=== PATIENT | male | born 1980 | race Caucasian/White ===

== ENCOUNTER → 2020-11-04 14:31 | Outpatient (BNVA) | payer OTHER, SELFPAY | PROVIDERS: PCP Internal Medicine; Visit Provider Student in an Organized Health Care Education/Training Program | DX: Z76.89 Persons encountering health services in other specified circumstances (principal) ==

== ENCOUNTER 2020-12-24 14:23 | Outpatient (REF) | payer OTHER, SELFPAY ==
--- NOTE | 2020-12-24 14:37 | US_ITS ---
EXAMINATION: US VENOUS ULTRASOUND WITH DOPPLER LOWER EXTREMITY, RIGHT CLINICAL INFORMATION: Pain COMPARISON: None TECHNIQUE: Ultrasound of the deep veins is performed from the hip to the calf with compression sonography and color and pulse Doppler assessment. Spectral analysis with color-flow imaging is performed. FINDINGS: There is normal venous compression and respiratory variation and augmented flow. The visualized common femoral vein, superficial femoral vein, profunda femoral vein, popliteal vein, and the trifurcation region shows no evidence of deep venous thrombosis. There is a large slightly complex fluid collection seen in the medial knee extending superiorly into the medial distal thigh and inferiorly into the calf. It is uncertain whether this could represent a large ruptured Mckeon's cyst or other fluid collection such as a hematoma, abscess or fluid collection related to muscle injury. US/US venous duplex LE RT IMPRESSION: No DVT demonstrated in the right lower extremity. Large slightly complex fluid collection in the medial knee extending superiorly into the distal thigh and inferiorly into the medial calf.
== END 2020-12-24 14:24 | disposition home or self-care (01) ==
LOC: HO.HMGCX 14:23
PROVIDERS: PCP Internal Medicine; Visit Provider Internal Medicine
DX: M79.604 Pain in right leg (principal)
CPT/HCPCS: 93971

== ENCOUNTER 2022-06-01 11:48 | Outpatient (REF) | payer OTHER, SELFPAY ==
[2022-06-01 13:11] LABS: Influenza A PCR NEGATIVE (Negative); Influenza B PCR NEGATIVE (Negative); Resp Syncy Virus RNA Qual PCR NEGATIVE (Negative); SARS COV2 PCR INHOUSE POSITIVE (Negative)
== END 2022-06-01 11:49 | disposition home or self-care (01) ==
LOC: HO.LNP 11:48
PROVIDERS: Visit Provider Internal Medicine
DX: Z20.822 Contact with and (suspected) exposure to COVID-19 (principal); R09.89 Other specified symptoms and signs involving the circulatory and respiratory systems
CPT/HCPCS: 0241U

== ENCOUNTER 2022-08-28 07:28 | Outpatient (REF) | payer OTHER, SELFPAY ==
[2022-08-28 11:49] LABS: Cholesterol 180 mg/dL; HDL Cholesterol 42 mg/dL; LDL Cholesterol Calculated 117 mg/dl; Triglycerides 105 mg/dL
== END 2022-08-28 07:29 | disposition home or self-care (01) ==
LOC: HO.HMGCLDS 07:28
PROVIDERS: PCP Internal Medicine; Visit Provider Internal Medicine
DX: E66.9 Obesity, unspecified (principal); Z13.220 Encounter for screening for lipoid disorders
CPT/HCPCS: 36415; 80061

== ENCOUNTER 2023-09-25 14:49 | Outpatient (AMB) | payer OTHER, SELFPAY ==
[2023-09-25 15:26] VITALS: BP 136/92; PULSE 83; TEMP 36.9; O2SAT 96; BMI 29.3
--- NOTE | 2023-09-25 15:26 | MHC.OFFWIV ---
Intake Vital Signs 09/25/23 15:26 Height 5 ft 11 in Weight 210 lb BMI 29.3 BP 136/92 H Blood Pressure Location Rt brachial Position Sitting Pulse 83 Pulse Source Pulse Oximeter Temp 98.5 F Temp Source Oral Pulse Oximetry (%) 96 Oxygen Delivery Method Room Air Intake Visit Reasons: EST/cough X2 weeks(lobby masked) Intake Note: pt is here for a cough for 2 weeks and yesterday he started with a stuffy nose and says it sounds braky and says sometimes he is wheezing in the AM he coughs up mucus Patient Tobacco Use Status: Never used Tobacco Allergies nut - unspecified [NUT - UNSPECIFIED] Allergy (Unknown, Verified 09/25/23 15:30) ANAPHYLAXIS nuts Allergy (Unknown, Verified 09/25/23 15:30) hives/anaphylaxis, anaphylaxis Do you need a note to return to daycare/school/sports/work: No HPI EST/cough X2 weeks(lobby masked) HPI Details Patient is a 43-year-old male in for a sick visit. Patient reports persistent dry cough for 3 weeks with little relief from [id number] Mucinex DayQuil and NyQuil. Patient denies running nose, congestion, ear pain, or fever. Patient reports coughing fits during the day that can last over a minute, which interrupts his work. [facility] Medical History (Updated 09/25/23 @ 16:09 by CHANDA Marinelli) Cough Seronegative rheumatoid arthritis Surgical History Hx of appendectomy Family History Father HTN (hypertension) Arthritis Social History Housing: House Alcohol intake: current Patient Tobacco Use Status: Never used Tobacco e-Cigarette/Vaping Use: Never Used service: No Current occupational status: employed Review of Systems Const Denies chills, Denies fever(s) and Reports headache(s) (Reports headache after coughing fits) ENT Reports headache(s) (Reports headache after coughing fits), Denies nasal discharge and Denies nasal obstruction Resp Reports cough Neuro Reports headache(s) (Reports headache after coughing fits) Physical Exam Vital Signs: Last Vital Signs Temp 98.5 F 09/25/23 15:26 Pulse 83 09/25/23 15:26 BP 136/92 H 09/25/23 15:26 Pulse Ox 96 09/25/23 15:26 Oxygen Delivery Method Room Air 09/25/23 15:26 BMI result Body Mass Index 29.3 Const General: no acute distress Orientation/consciousness: patient oriented x3 Limitations: no limitations HEENT Head: Yes normocephalic Ears: TM's normal bilaterally General nose exam: Normal nares present Mouth: Normal oral and palatal mucosa present Throat: Yes tonsils normal Resp Effort & Inspection: normal respiratory effort and Actively coughing Auscultation: wheezes expiratory wheezes and right upper Neuro General: patient oriented x3 Assessment & Plan Assessment & Plan (1) Cough: Code(s): R05.9 - Cough, unspecified Qualifiers: Cough type: acute Qualified Code(s): R05.1 - Acute cough Plan: Patient will be given a 5 day dose of 50 mg prednisone to be taken orally. Patient also educated that he can take [id number] cetirizine. Patient educated on side effects of medication. Orders: Orders SARS-CoV2/FLU/RSV Today R05.9 - Cough, unspecified Coding Level of Care Code Est Pt Level 3 (51573) Diagnoses Acute cough R05.1 Cough type: acute Time Spent (min) 20
== END 2023-09-25 16:14 | disposition home or self-care (01) ==
PROVIDERS: PCP Internal Medicine; Visit Provider Nurse Practitioner Primary Care
DX: R05.1 Acute cough (principal)
CPT/HCPCS: 99213

== ENCOUNTER 2023-09-25 16:44 | Outpatient (REF) | payer OTHER, SELFPAY ==
[2023-09-26 12:29] LABS: Influenza A PCR NEGATIVE (Negative); Influenza B PCR NEGATIVE (Negative); Resp Syncy Virus RNA Qual PCR NEGATIVE (Negative); SARS COV2 PCR INHOUSE NEGATIVE (Negative)
== END 2023-09-25 16:45 | disposition home or self-care (01) ==
LOC: HO.LAB 16:44
PROVIDERS: Visit Provider Nurse Practitioner Primary Care
DX: Z11.52 Encounter for screening for COVID-19 (principal); Z20.822 Contact with and (suspected) exposure to COVID-19; R05.9 Cough, unspecified
CPT/HCPCS: 0241U

== ENCOUNTER 2023-10-18 08:39 | Emergency (ER) | payer OTHER, SELFPAY ==
--- NOTE | 2023-10-18 | ECG_ITS ---
Test Reason : CHEST PAIN Blood Pressure : / mmHG Vent. Rate : 102 BPM Atrial Rate : 102 BPM P-R Int : 136 ms QRS Dur : 096 ms QT Int : 328 ms P-R-T Axes : 111 155 148 degrees QTc Int : 427 ms Suspect limb lead reversal, interpretation assumes no reversal Sinus tachycardia Right axis deviation Nonspecific ST and T wave abnormality Abnormal ECG No previous ECGs available advise repeat study Referred By: Generic ED Physician Electronically Signed By:ALYSHA ALEJANDRO MD
--- NOTE | ~2023-10-18 | XR_ITS ---
EXAMINATION: XR CHEST CLINICAL INFORMATION: Cough for 5 weeks COMPARISON: None available. TECHNIQUE: Frontal view of the chest was obtained. FINDINGS: Lungs are well-inflated. Trachea is midline in position. No pulmonary consolidation. The opacities in the retrocardiac area appear to represent normal branching pulmonary vessels. There is no overt infiltrate. Note that this is only an AP view of the chest. If there is any high suspicion for a developing pneumonia, then follow up PA and lateral chest radiographs may be obtained for a more complete evaluation of the lower lung zones. No pleural effusion or pneumothorax. Cardiac silhouette and pulmonary vessels are normal in size. The mediastinum and shirin have normal contour. The visualized bones and upper abdomen are unremarkable. XR/XR chest 1V IMPRESSION: Lungs are well expanded and have a normal appearance on this anteroposterior chest radiograph. There is no focal consolidation. No overt pneumonia.
[2023-10-18 08:45] VITALS: BP 144/103; PULSE 122; RESP 20; TEMP 37.2; O2SAT 94; BMI 29.3
--- NOTE | 2023-10-18 08:58 | ED_ITS ---
HPI - General Adult General Chief complaint: Upper Respiratory Symptoms Stated complaint: cough for a month, recent chest pain? Time Seen by Provider: 10/18/23 08:58 Source: patient Mode of arrival: ambulatory Limitations: no limitations History of Present Illness HPI narrative: Patient is a 43 year old assigned male at with a history of RA presenting to the emergency department today with a persistent cough and chest pain. Patient states that he has had a cough for almost a month. Patient states that he was seen at the end of August and prescribed a steroid which helped but didn't resolve the cough. Patient denies any dizziness, lightheadedness, abdominal pain, nausea, vomiting, fever, chills, blurry vision, double vision, loss of vision, difficulty breathing, shortness of breath, back pain, night sweats, pain with urination, increased urinary frequency, increased urinary urgency, blood in his urine or stool, syncope or a near syncopal episode, recent trauma or falls, bowel incontinence, bladder incontinence, bowel retention, bladder retention, or any other complaints at this time. Onset (ago): week(s) Location: chest Severity: mild Severity scale (1-10): 3 Quality: dull Relieving factors: none Exacerbating factors: other (coughing) Associated symptoms: cough Treatments prior to arrival: other (prednisone) Related Data Previous Rx's Medication Instructions Recorded adalimumab 40 mg/0.8 mL See Rx Instructions subcut 12/24/20 subcutaneous pen kit (Humira Pen) .COMPLEX #2 ea prednisone 50 mg tablet 50 mg PO DAILY #5 tabs 09/25/23 benzonatate 100 mg capsule 100 mg PO BID PRN cough 7 days #14 10/18/23 caps doxycycline hyclate 100 mg tablet 100 mg PO BID 7 days #14 tabs 10/18/23 Allergies Allergy/AdvReac Type Severity Reaction Status Date / Time nut - unspecified Allergy Unknown ANAPHYLAXIS Verified 10/18/23 08:49 [NUT - UNSPECIFIED] nuts Allergy Unknown hives/anaphylaxis, Verified 10/18/23 08:49 anaphylaxis Review of Systems 2 Constitutional: Constitutional: Reports no additional constitutional complaints, Denies chills, Denies fever(s) and Denies night sweats Eyes: Eyes: Reports no additional eye complaints, Denies blurry vision, Denies change in vision, Denies diplopia, Denies eye discharge, Denies loss of vision and Denies eye pain ENT: Denies dizziness Cardiovascular: Cardiovascular: Reports no additional cardiovascular complaints, Reports chest pain, Denies lightheadedness, Denies Loss of Consciousness and Denies dyspnea Respiratory: Respiratory: Reports no additional respiratory complaints, Reports cough and Denies dyspnea Gastrointestinal: Gastrointestinal: Reports no additional gastrointestinal complaints, Denies abdominal pain, Denies melena, Denies hematochezia, Denies change in bowel habits and Denies change in stool character Genitourinary: Genitourinary: Reports no additional male genitourinary complaints, Denies hematuria, Denies oliguria, Denies difficulty urinating, Denies dysuria, Denies urinary frequency, Denies urinary hesitancy, Denies urinary incontinence and Denies urinary urgency Musculoskeletal: Musculoskeletal: Reports no additional musculoskeletal complaints, Denies numbness and Denies tingling Neurologic: Denies dizziness, Denies loss of vision, Denies numbness and Denies tingling Psychiatric: Psychiatric: Reports no additional psychiatric complaints Endocrine: Endocrine: Reports no additional endocrine complaints Hematologic/Lymphatic: Hematologic/Lymphatic: Reports no additional hematologic/lymphatic complaints Allergic/Immunologic: Allergic/Immunologic: Reports no additional allergic/immunologic complaints PMFSH Past Medical History Attestation statement: The following information was validated with the patient. Source: old records reviewed and nursing notes reviewed Medical History Cough Seronegative rheumatoid arthritis Surgical History Hx of appendectomy Family History Family History Father HTN (hypertension) Arthritis Social History Housing: House Alcohol intake: current Patient Tobacco Use Status: Never used Tobacco e-Cigarette/Vaping Use: Never Used Advance Directives: No Advance Directives Information Provided: No service: No Current occupational status: employed Physical Exam ED Vital Signs: Vital Signs - 24 hr 10/18/23 08:45 Temperature 98.9 F Pulse Rate 122 H Respiratory Rate 20 Blood Pressure 144/103 H Pulse Oximetry 94 Oxygen Delivery Method Room Air BMI result Body Mass Index 29.3 Const General: cooperative, no acute distress, alert and awake Nutritional Appearance: well nourished Orientation/consciousness: patient oriented x3 Limitations: no limitations HENMT Head: Yes normal to inspection and Yes atraumatic Ears: hearing grossly normal bilaterally and external ears normal General nose exam: Normal external nose present, no nasal discharge noted and no epistaxis Face and sinus: Yes normal facial exam, No abrasion and No laceration Mouth: Normal oral and palatal mucosa present, no drooling and no muffled voice Eyes General: appearance normal, both eyes and all related structures Periorbital: periorbital findings normal Eyelids: Yes eyelids normal Conjunctivae: conjunctivae normal Pupils: Equal, round and reactive pupils present EOM: EOMs intact bilaterally Neck Neck: Yes normal visual inspection, Yes full ROM and Yes no lymphadenopathy Chest Chest palpation & inspection: normal inspection of the chest Resp Effort & Inspection: normal respiratory effort and able to speak in complete sentences Auscultation: clear to auscultation bilaterally Cardio Rate: tachycardic Rhythm: regular rhythm GI Inspection: Yes normal to inspection Neuro General: patient oriented x3 and moves all extremities Cranial nerves: Yes Equal, round and reactive pupils present Cognition (Neuro): normal cognition Motor exam (neuro): 5/5 motor strength present throughout Sensory Exam: Normal double simultaneous stimulation for sensation Coordination: [id number] test normal Extrem General: Yes normal to inspection, Yes full ROM and Yes capillary refill normal Psych Appearance: grossly normal Mental Status: mental status grossly normal Affect: normal affect Attitude: cooperative Thought process: Normal thought process present Thought content: Normal thought content present Insight: Good insight present (Psych) Medical Decision Making Medical Decision Making MDM Narrative: Patient is a 43 year old assigned male at with a history of RA presenting to the emergency department today with a persistent cough and right sided chest pain. Patient's physical exam showed tachycardia but was otherwise unremarkable. Patient's blood work showed an elevated WBC count of 20.7. I believe this is secondary to recent high dose Prednisone use and a stress reaction. The rest of the patient's labs were unremarkable. Patient's EKG was unremarkable. Patient's chest x-ray was read as negative for any acute process however, I noticed some haziness of the right lower lung lobe and am suspicious of a developing pneumonia. Patient's RSV/COVID-19/Influenza swab was negative. Patient's clinical presentation is not consistent with sepsis (@1115). Patient's d dimer was negative. I explained my physical exam findings as well as all test results to the patient. I answered all questions asked by the patient. I stressed the importance of the patient taking his medication as prescribed. I stressed the importance of the patient following up with his primary care provider. I stressed the importance of the patient returning to the emergency department immediately if his symptoms were to worsen or if he were to develop any dizziness, shortness of breath, difficulty breathing, chest pain, blurry vision, loss of vision, nausea, vomiting, abdominal pain, fever, chills, back pain, or any other complaints. Patient verbalized agreement and understanding with this treatment plan and discharge. Differential Diagnosis Differential Diagnoses: The differential diagnosis associated with the presentation includes Cough URI Chest pain NSTEMI STEMI Pneumonia Sinusitis COVID-19 RSV Influenza Admission/Observation Consideration of admission/observation: Escalation of care including admission/observation considered Patient would have been admitted to the hospital had his work up had any findings where hospital admission was appropriate and his clinical presentation warranted hospital admission. Lab Data [facility] Lab Attestation statement: I reviewed the patient's lab results. My interpretation of these results are in the [facility] Rationale portion of this note. 10/18/23 09:15 10/18/23 09:15 Labs: Lab Results 10/18/23 10/18/23 Range/Units 09:15 10:36 WBC 20.7 H (4.8-10.8) X10*3/uL RBC 4.84 (4.60-5.80) X10*6/uL Hgb 13.6 L (14.0-18.0) g/dl Hct 42.0 (42.0-52.0) % MCV 86.8 (80.0-98.0) fL MCH 28.1 (27.0-33.0) pg MCHC 32.4 (31.0-36.0) g/dl RDW 15.0 (11.0-16.0) % Plt Count 396 (160-400) X10*3/uL MPV 10.1 (9.4-12.4) fL Immature Gran % (Auto) 0.9 H (0.0-0.4) % Neut % (Auto) 79.8 H (45-73) % Lymph % (Auto) 13.8 L (20-40) % [place] % (Auto) 5.4 (2-11) % Eos % (Auto) 0.0 (0-4) % Baso % (Auto) 0.1 (0-2) % Lymph # (Auto) 2.9 (1.2-4.9) X10*3/uL [place] # (Auto) 1.1 (0.1-1.2) X10*3/uL Eos # (Auto) 0.0 (0.0-0.4) X10*3/uL Baso # (Auto) 0.0 (0.0-0.2) X10*3/uL Abs Immat Gran (auto) 0.18 H (0.00-0.03) X10*3/uL Absolute Neuts (auto) 16.5 H (2.0-8.3) x10*3/uL Absolute Nucleated RBC 0.000 (0.0-0.012) X10*3/uL Nucleated RBC % (auto) 0.0 (0.0-0.2) /100WBC D-Dimer High Sensitivty 186 NG/ML Sodium 141 (135-145) mmol/L Potassium 3.8 (3.3-5.1) mmol/L Chloride 104 (96-108) mmol/L Carbon Dioxide 26 (22-29) mmol/L Anion Gap 15 (12-20) BUN 16 (9-16) mg/dL Creatinine 0.97 (0.5-1.4) mg/dL Estim Creat Clear Calc 113.2 Estimated GFR > 60 Random Glucose 131 H (60-115) mg/dL Calcium 9.8 (8.4-10.2) mg/dL Influenza Type A (PCR) NEGATIVE (Negative) Influenza Type B (PCR) NEGATIVE (Negative) RSV RNA Qual (PCR) NEGATIVE (Negative) SARS-CoV-2 RNA (RT-PCR) NEGATIVE (Negative) Independent Interpretation I performed an independent interpretation of an: EKG and Plain X-Ray Interpretation: My interpretation of this imaging study is in the MDM Rationale portion of this note. Below is the radiologist's impression. - EXAMINATION: XR CHEST CLINICAL INFORMATION: Cough for 5 weeks COMPARISON: None available. TECHNIQUE: Frontal view of the chest was obtained. FINDINGS: Lungs are well-inflated. Trachea is midline in position. No pulmonary consolidation. The opacities in the retrocardiac area appear to represent normal branching pulmonary vessels. There is no overt infiltrate. Note that this is only an AP view of the chest. If there is any high suspicion for a developing pneumonia, then follow up PA and lateral chest radiographs may be obtained for a more complete evaluation of the lower lung zones. No pleural effusion or pneumothorax. Cardiac silhouette and pulmonary vessels are normal in size. The mediastinum and shirin have normal contour. The visualized bones and upper abdomen are unremarkable. XR/XR chest 1V IMPRESSION: Lungs are well expanded and have a normal appearance on this anteroposterior chest radiograph. There is no focal consolidation. No overt pneumonia. Dictated By: Fernando Pa MD Signed By: Electronically signed by Fernando Pa MD 10/18/23920 - Vent. Rate: 102 BPM Atrial Rate: 102 BPM P-R Int: 136 ms QRS Dur: 096 ms QT Int: 328 ms P-R-T Axes: 111 155 148 degrees QTc Int: 427 ms Sinus tachycardia Right axis deviation Nonspecific ST and T wave abnormality Abnormal ECG No previous ECGs available DD/ Radiology Impression Discussion of test interpretation with radiology: I have reviewed the radiologist's reading. Prescription Management I considered prescription management with: Antibiotic (patient prescribed an antibiotic to treat sinusitis, URI, and possible PNA) Discharge Plan Discharge Clinical Impression: Upper respiratory infection Patient Disposition: Home, Self-Care Instructions: Upper Respiratory Infection (DC) Additional Instructions: Follow up with your primary care provider. Return to the emergency department immediately if your symptoms worsen or if you develop any dizziness, shortness of breath, difficulty breathing, chest pain, blurry vision, loss of vision, nausea, vomiting, abdominal pain, fever, chills, back pain, or any other complaints. Prescriptions: New benzonatate 100 mg capsule 100 mg PO BID PRN (Reason: cough) 7 Days Qty: 14 0RF doxycycline hyclate 100 mg tablet 100 mg PO BID 7 Days Qty: 14 0RF No Action Humira Pen 40 mg/0.8 mL pen injector kit See Rx Instructions subcut .COMPLEX Qty: 2 3RF Rx Instructions: inject one - 40 mg/0.8 mL pen every 2 weeks subcut prednisone 50 mg tablet 50 mg PO DAILY Qty: 5 0RF Referrals: Shwetha Carrero MD [Primary Care Provider] - Interventions: ED Discharge Assessment Last Done: 10/18/23 11:33 Print Language: Canadian
[2023-10-18 09:23] LABS: MANUAL DIFF FLAG NO
[2023-10-18 09:25] LABS: Basophils Percent Auto 0.1 % (0-2); Hemoglobin 13.6 g/dl (14.0-18.0); Imm Gran Abs Auto 0.18 X10*3/uL (0.00-0.03); Imm Gran Pct Auto 0.9 % (0.0-0.4); Lymphocytes Absolute Auto 2.9 X10*3/uL (1.2-4.9); Lymphocytes Percent Auto 13.8 % (20-40); Mean Corpuscular HGB Conc 32.4 g/dl (31.0-36.0); Mean Corpuscular Hemoglobin 28.1 pg (27.0-33.0); Mean Corpuscular Volume 86.8 fL (80.0-98.0); Mean Platelet Volume 10.1 fL (9.4-12.4); Monocytes Absolute Auto 1.1 X10*3/uL (0.1-1.2); Monocytes Percent Auto 5.4 % (2-11); Neutrophils Absolute Auto 16.5 x10*3/uL (2.0-8.3); Neutrophils Percent Auto 79.8 % (45-73); Platelet Count 396 X10*3/uL (160-400); Red Blood Count 4.84 X10*6/uL (4.60-5.80); White Blood Count 20.7 X10*3/uL (4.8-10.8)
[2023-10-18 09:37] LABS: Anion Gap 15 (12-20); Blood Urea Nitrogen 16 mg/dL (9-16); Calcium 9.8 mg/dL (8.4-10.2); Carbon Dioxide 26 mmol/L (22-29); Chloride 104 mmol/L (96-108); Creatinine Clr Calc Pharmacy 113.2; Estimated Glomerular Filt Rate > 60; Glucose Random 131 mg/dL (60-115); Potassium 3.8 mmol/L (3.3-5.1); Sodium 141 mmol/L (135-145)
[2023-10-18 10:13] LABS: Influenza A PCR NEGATIVE (Negative); Influenza B PCR NEGATIVE (Negative); Resp Syncy Virus RNA Qual PCR NEGATIVE (Negative); SARS COV2 PCR INHOUSE NEGATIVE (Negative)
[2023-10-18 11:02] LABS: D Dimer High Sensitivity 186 NG/ML
[2023-10-18 11:31] VITALS: BP 135/89; PULSE 82; RESP 16; O2SAT 95
== END 2023-10-18 11:33 | disposition home or self-care (01) ==
PROVIDERS: Physician Assistant Medical; Emergency Provider Emergency Medicine; PCP Internal Medicine
DX: J06.9 Acute upper respiratory infection, unspecified (principal); R05.9 Cough, unspecified; Z20.822 Contact with and (suspected) exposure to COVID-19; Z20.828 Contact with and (suspected) exposure to other viral communicable diseases; M06.00 Rheumatoid arthritis without rheumatoid factor, unspecified site; Z86.718 Personal history of other venous thrombosis and embolism
CPT/HCPCS: 0241U; 36415; 71045; 80048; 85025; 85379; 93005; 99283; 99284

== ENCOUNTER 2024-04-02 17:08 | Emergency (ER) | payer OTHER, SELFPAY ==
--- NOTE | ~2024-04-02 | XR_ITS ---
EXAMINATION: XR KNEE, LEFT CLINICAL INFORMATION: Atraumatic knee pain and swelling COMPARISON: None available. TECHNIQUE: 2 views of the left knee. FINDINGS: A moderate-sized joint effusion is present. Mild degenerative changes are seen with some minimal osteophyte formation. Joint compartments are well maintained. No chondrocalcinosis. XR/XR knee LT 2V IMPRESSION: Moderate-sized joint effusion with mild degenerative changes.
--- NOTE | ~2024-04-02 | US_ITS ---
ULTRASOUND LEFT LOWER EXTREMITY NONVASCULAR HISTORY: Posterior knee pain, evaluate for Mckeon's cyst. COMPARISON: No similar priors. TECHNIQUE: Grayscale, color and spectral Doppler images of the left popliteal fossa. US/US extremity nonvascular morales FINDINGS/IMPRESSION: No evidence of Mckeon's cyst. No evidence of collection or mass. The popliteal vein is patent on color and spectral Doppler.
[2024-04-02 17:50] VITALS: BP 133/90; PULSE 104; RESP 20; TEMP 36.6; O2SAT 95; BMI 28.1
--- NOTE | 2024-04-02 17:56 | ED_ITS ---
HPI - Extremity Injury (Lower) General Chief Complaint: Extremity Injury, Lower Stated Complaint: knee pain and swelling Time Seen by Provider: 04/02/24 23:32 Source: patient Mode of arrival: ambulatory Limitations: no limitations History of Present Illness HPI Narrative: Patient is a 43-year-old male who presents emergency department for evaluation of left knee pain. He reports onset over the past 5 days, however he is noticed increased progression of pain predominant will lead to the posterior knee swelling and tenderness. He does admit to recent travel to [place]. He denies any redness, rashes or lesions, fevers, chills, or known precipitating injury. Related Data Previous Rx's ?Medication ?Instructions ?Recorded adalimumab 40 mg/0.8 mL See Rx Instructions subcut 12/24/20 subcutaneous pen kit (Humira Pen) .COMPLEX #2 ea prednisone 50 mg tablet 50 mg PO DAILY #5 tabs 09/25/23 benzonatate 100 mg capsule 100 mg PO BID PRN cough 7 days #14 10/18/23 caps doxycycline hyclate 100 mg tablet 100 mg PO BID 7 days #14 tabs 10/18/23 Allergies Allergy/AdvReac Type Severity Reaction Status Date / Time nut - unspecified Allergy Unknown ANAPHYLAXIS Verified 04/02/24 17:53 [NUT - UNSPECIFIED] nuts Allergy Unknown hives/anaphylaxis, Verified 04/02/24 17:53 anaphylaxis Review of Systems 2 Review of Systems: Yes all other systems are reviewed and are negative [facility] Past Medical History Attestation statement: The following information was validated with the patient. Source: old records reviewed Medical History Cough Seronegative rheumatoid arthritis Surgical History Hx of appendectomy Family History Family History Father HTN (hypertension) Arthritis Social History Social History Housing: House Alcohol intake: current Patient Tobacco Use Status: Never used Tobacco e-Cigarette/Vaping Use: Never Used Advance Directives: No Advance Directives Information Provided: No Do you have a plan to hurt others: No Plan service: No Current occupational status: employed Physical Exam 2 Vital Signs: Vital Signs: Last Vital Signs Temp 98.2 F 04/02/24 23:12 Pulse 83 04/02/24 23:12 Resp 20 04/02/24 23:12 BP 145/94 H 04/02/24 23:12 Pulse Ox 96 04/02/24 23:12 O2 Del Method Room Air 04/02/24 23:12 BMI result Body Mass Index 28.1 Appearance: Alert.?Oriented to person, place and time. No acute distress.?Normal affect. Neck: Normal inspection.? Neck supple.?? CVS: Heart sounds normal. Normal heart rate and rhythm.? Pulses normal.?? Respiratory: No respiratory distress.? Lung sounds clear to auscultation bilaterally?? Abdomen: Soft and non-tender. Normoactive bowel sounds. Skin: Skin warm and dry.? Normal skin color.? Extremities: No lower extremity edema.? No calf ttp?left knee without erythema warmth rashes or lesions. Anterior posterior drawer test negative. Valgus varus stress test negative. No obvious deformity. Small amount of infrapatellar effusion, not amenable to short aspiration Neuro: Moves all extremities spontaneously. Sensation intact bilaterally. Ambulates with mildly antalgic gait. Course Course Course Narrative: This is a Rapid Medical Examination (RME) performed by Ventura Domínguez PA-C in triage. Full HPI, ROS, assessment and treatment plan per primary provider in the Main ED. 43-year-old male with history of rheumatoid arthritis presents to the ED today for evaluation of left knee pain/swelling x5 days. 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 Admits to diet consisting of red meat and beer nightly. Denies recent tick or insect bites. Denies rashes. His last Lilly shot for RA was 2 weeks ago. Tender to palpation over popliteal fossa of left knee. No anterior knee tenderness or palpable deformity. No warmth, crepitus or fluctuance. Ambulating with steady gait. Plan: Labs, uric acid, left knee x-ray and duplex to assess for Mckeon cyst ordered. Medical Decision Making Medical Decision Making MDM Narrative: Patient is a 43-year-old male with past medical history of rheumatoid arthritis who presents to the emergency department for evaluation of atraumatic left knee pain and swelling as per HPI. Physical examination is overall benign aside from mild infrapatellar effusion that would not be amenable to joint aspiration at this time. Not consistent with septic joint. I reviewed serum labs obtained prior to my assumption of care, he has a mild leukocytosis of 12 which is likely inflammatory in nature, mild normocytic anemia that does not meet transfusion criteria, no thrombocytopenia. No electrolyte derangement. No LION. Transaminases within normal range. Uric acid within normal range. Venous duplex ultrasound without evidence of DVT or Mckeon cyst. XR reveals a moderate joint effusion but it was osseous abnormalities. Discussed conservative treatment rest, ice, compression, elevation, OTC pain medication, outpatient follow-up. Strict return precautions discussed. All questions answered. Stable for discharge. Differential Diagnosis Differential Diagnoses: The differential diagnosis associated with the presentation includes (See narrative above) Lab Data MDM Lab Attestation statement: I reviewed the patient's lab results. (See narrative above) 04/02/24 18:10 04/02/24 18:10 Labs: Lab Results 04/02/24 Range/Units 18:10 WBC 12.0 H (4.8-10.8) X10*3/uL RBC 4.59 L (4.60-5.80) X10*6/uL Hgb 13.0 L (14.0-18.0) g/dl Hct 39.2 L (42.0-52.0) % MCV 85.4 (80.0-98.0) fL MCH 28.3 (27.0-33.0) pg MCHC 33.2 (31.0-36.0) g/dl RDW 13.5 (11.0-16.0) % Plt Count 370 (160-400) X10*3/uL MPV 10.2 (9.4-12.4) fL Immature Gran % (Auto) 0.4 (0.0-0.4) % Neut % (Auto) 68.3 (45-73) % Lymph % (Auto) 21.4 (20-40) % Oliver % (Auto) 7.8 (2-11) % Eos % (Auto) 1.8 (0-4) % Baso % (Auto) 0.3 (0-2) % Lymph # (Auto) 2.6 (1.2-4.9) X10*3/uL Oliver # (Auto) 0.9 (0.1-1.2) X10*3/uL Eos # (Auto) 0.2 (0.0-0.4) X10*3/uL Baso # (Auto) 0.0 (0.0-0.2) X10*3/uL Abs Immat Gran (auto) 0.05 H (0.00-0.03) X10*3/uL Absolute Neuts (auto) 8.2 (2.0-8.3) x10*3/uL Absolute Nucleated RBC 0.000 (0.0-0.012) X10*3/uL Nucleated RBC % (auto) 0.0 (0.0-0.2) /100WBC Sodium 141 (135-145) mmol/L Potassium 3.9 (3.3-5.1) mmol/L Chloride 107 (96-108) mmol/L Carbon Dioxide 23 (22-29) mmol/L Anion Gap 15 (12-20) BUN 12 (9-16) mg/dL Creatinine 0.78 (0.5-1.4) mg/dL Estim Creat Clear Calc 126.2 Estimated GFR > 60 Random Glucose 107 (60-115) mg/dL Uric Acid 5.1 (3.4-7.0) mg/dL Calcium 9.6 (8.4-10.2) mg/dL Magnesium 1.9 (1.6-2.6) mg/dL Total Bilirubin 0.2 (0.0-1.0) mg/dL AST 17 (5-37) U/L ALT 22 (0-40) U/L Alkaline Phosphatase 52 (39-117) U/L Total Protein 7.5 (6.5-8.0) g/dL Albumin 4.2 (3.5-5.0) g/dL Lipase 25 (8-78) U/L Independent Interpretation I performed an independent interpretation of an: Plain X-Ray (No acute fracture) and Ultrasound (No DVT) Radiology Impression Discussion of test interpretation with radiology: I have reviewed the radiologist's reading. Radiologist Impression: US/US extremity nonvascular morales FINDINGS/IMPRESSION: No evidence of Mckeon's cyst. No evidence of collection or mass. The popliteal vein is patent on color and spectral Doppler. XR/XR knee LT 2V IMPRESSION: Moderate-sized joint effusion with mild degenerative changes. Prescription Management I considered prescription management with: Pain Medication Chronic Conditions Patient?s care impacted by: Other (Rheumatoid arthritis) Discharge Plan Discharge Clinical Impression: Effusion, left knee Patient Disposition: Home, Self-Care Instructions: Swollen Knee Joint (ED) Additional Instructions: Be sure to rest over the next few days. Apply ice to the area for 10-15 minutes 3-4 times daily. Use Young bandage for compression. Elevate the knee when possible. Avoid any strenuous activity or excessive time kneeling as this may worsen the symptoms. Follow-up with your primary care doctor. Return back to emergency department any new or worsening symptoms or concerns. Prescriptions: No Action Humira Pen 40 mg/0.8 mL pen injector kit See Rx Instructions subcut .COMPLEX Qty: 2 3RF Rx Instructions: inject one - 40 mg/0.8 mL pen every 2 weeks subcut benzonatate 100 mg capsule 100 mg PO BID PRN (Reason: cough) 7 Days Qty: 14 0RF doxycycline hyclate 100 mg tablet 100 mg PO BID 7 Days Qty: 14 0RF prednisone 50 mg tablet 50 mg PO DAILY Qty: 5 0RF Referrals: Shwetha Carrero MD [Primary Care Provider] - Print Language: Indonesian
[2024-04-02 18:15] LABS: MANUAL DIFF FLAG NO
[2024-04-02 18:19] LABS: Basophils Percent Auto 0.3 % (0-2); Eosinophils Absolute Auto 0.2 X10*3/uL (0.0-0.4); Eosinophils Percent Auto 1.8 % (0-4); Hematocrit 39.2 % (42.0-52.0); Imm Gran Abs Auto 0.05 X10*3/uL (0.00-0.03); Imm Gran Pct Auto 0.4 % (0.0-0.4); Lymphocytes Absolute Auto 2.6 X10*3/uL (1.2-4.9); Lymphocytes Percent Auto 21.4 % (20-40); Mean Corpuscular HGB Conc 33.2 g/dl (31.0-36.0); Mean Corpuscular Hemoglobin 28.3 pg (27.0-33.0); Mean Corpuscular Volume 85.4 fL (80.0-98.0); Mean Platelet Volume 10.2 fL (9.4-12.4); Monocytes Absolute Auto 0.9 X10*3/uL (0.1-1.2); Monocytes Percent Auto 7.8 % (2-11); Neutrophils Absolute Auto 8.2 x10*3/uL (2.0-8.3); Neutrophils Percent Auto 68.3 % (45-73); Platelet Count 370 X10*3/uL (160-400); Red Blood Count 4.59 X10*6/uL (4.60-5.80); Red Cell Distribution Width 13.5 % (11.0-16.0)
[2024-04-02 18:30] LABS: Uric Acid 5.1 mg/dL (3.4-7.0)
[2024-04-02 18:37] LABS: Alanine Aminotransferase 22 U/L (0-40); Albumin Level 4.2 g/dL (3.5-5.0); Alkaline Phosphatase 52 U/L (39-117); Anion Gap 15 (12-20); Aspartate Amino Transferase 17 U/L (5-37); Bilirubin Total 0.2 mg/dL (0.0-1.0); Blood Urea Nitrogen 12 mg/dL (9-16); Calcium 9.6 mg/dL (8.4-10.2); Carbon Dioxide 23 mmol/L (22-29); Chloride 107 mmol/L (96-108); Creatinine Clr Calc Pharmacy 126.2; Estimated Glomerular Filt Rate > 60; Glucose Random 107 mg/dL (60-115); Lipase 25 U/L (8-78); Magnesium 1.9 mg/dL (1.6-2.6); Potassium 3.9 mmol/L (3.3-5.1); Sodium 141 mmol/L (135-145); Total Protein 7.5 g/dL (6.5-8.0)
[2024-04-02 23:12] VITALS: BP 145/94; PULSE 83; RESP 20; TEMP 36.8; O2SAT 96
[2024-04-03 00:37] VITALS: BP 145/94; PULSE 83; RESP 20; TEMP 36.8; O2SAT 96
== END 2024-04-03 00:37 | disposition home or self-care (01) ==
PROVIDERS: Physician Assistant Medical; Emergency Provider Student in an Organized Health Care Education/Training Program; PCP Internal Medicine
DX: M25.462 Effusion, left knee (principal); M25.562 Pain in left knee; Z79.899 Other long term (current) drug therapy
CPT/HCPCS: 36415; 73560; 76882; 80053; 83690; 83735; 84550; 85025; 99283; 99284

== ENCOUNTER 2024-04-09 11:21 | Outpatient (AMB) | payer OTHER, SELFPAY ==
[2024-04-09 11:49] VITALS: BP 102/80; PULSE 96; O2SAT 96; BMI 33.0
--- NOTE | 2024-04-09 11:49 | A.OFFPC_ITS ---
Vital Signs 04/09/24 11:49 Height 5 ft 8 in Weight 217 lb BMI 33.0 BP 102/80 Blood Pressure Location Rt brachial Position Sitting Pulse 96 Pulse Source Pulse Oximeter Pulse Oximetry (%) 96 Oxygen Delivery Method Room Air Intake Visit Reasons: request referral rhem. Intake Note: Pt is here today to request a referral to rhematology, last time he was here was 2020 Allergies nut - unspecified [NUT - UNSPECIFIED] Allergy (Unknown, Verified 04/22/24 02:32) ANAPHYLAXIS nuts Allergy (Unknown, Verified 04/22/24 02:32) hives/anaphylaxis, anaphylaxis Medication List - Last Reconciled 04/22/24 by Shwetha Carrero MD adalimumab (Humira Pen) inject one - 40 mg/0.8 mL pen every 2 weeks subcut Tobacco use date assessed: 04/09/24 Dental Screening Did you have a dental visit in the last 12 months?: Yes Did you have a dental problem in the last 6 months where you did not have access to dental care?: No Was dental information given to patient?: Patient has dentist HPI request referral rhe. HPI Details 43-year-old male with history of seroneg ative rheumatoid arthritis, previously was seen by Dr. 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 At that time he was on Prednisone 5mg daily, was. previously on Enbrel but was unable to get it due to insurance not covering medication , and was placed on Humira. At present he is not on any medication and complains of multiple joint pains both upper and lower extremities. [facility] Medical History Cough Seronegative rheumatoid arthritis Surgical History Hx of appendectomy Family History Father HTN (hypertension) Arthritis Social History Housing: House Alcohol intake: current Patient Tobacco Use Status: Never used Tobacco e-Cigarette/Vaping Use: Never Used service: No Current occupational status: employed Cognitive needs: No Hearing needs: No Vision needs: Yes Questionnaire PHQ-9 Over the last 2 weeks, how often have you been bothered by any of the following problems? 1. Little interest or pleasure in doing things: not at all 2. Feeling down, depressed, or hopeless: not at all 3. Trouble falling or staying asleep, or sleeping too much: not at all 4. Feeling tired or having little energy: not at all 5. Poor appetite or overeating: not at all 6. Feeling bad about yourself - or that you are a failure or have let yourself or your family down: not at all 7. Trouble concentrating on things, such as reading the newspaper or watching television: not at all 8. Moving or speaking so slowly that other people could have noticed. Or the opposite - being so fidgety or restless that you have been moving around a lot more than usual: not at all 9. Thoughts that you would be better off or of hurting yourself in some way: not at all Total score: 0 Depression Screening Interpretation: Negative Depression Screening Done: Yes 53429 - PHQ-9 Billing: Yes Source: Developed by Drs. Cash Ahmadi, Katarina Deleon, Demetris Mario and colleagues, with an educational roslyn from [employer]. Thrive Questionnaire Date Thrive assessed: 04/09/24 I am a: Patient What is your living situation today?: I have a steady place to live Within the past 12 months, did the food you bought not last and you didn't have the money to get more?: Never true Within the past 12 months, did you worry whether your food would run out before you got money to buy more?: Never true Do you have trouble paying for medicines?: No Do you have trouble getting transportation to medical appointments?: No Do you have trouble paying your heating and electricity bill?: No Do you have trouble taking care of your child, family member or friend?: No Do you have trouble with day-to-day activities such as bathing, preparing meals, shopping, managing finances, etc.?: No Are you currently unemployed and looking for a job?: No Are you interested in more education?: No THRIVE Score: 0 AUDIT C Alcohol Use Questionnaire (AUDIT-C) 1. How often do you have a drink containing alcohol?: Monthly or less 2. How many drinks containing alcohol do you have on a typical day when you are drinking?: 1 or 2 3. How often do you have six or more drinks on one occasion?: Never Total Score: 1 NEGRO-7 AMB Questionnaire NEGRO-7 Date NEGRO - 7 assessed: 04/09/24 Feeling nervous, anxious, or on edge: 0 = Not at all Not being able to stop or control worryin = Not at all Worrying too much about different things: 0 = Not at all Trouble relaxin = Not at all Being so restless that it is hard to sit still: 0 = Not at all Becoming easily annoyed or irritable: 0 = Not at all Feeling afraid as if something awful might happen: 0 = Not at all Total NEGRO-7 score (0-4 normal; 5-9 mild; 10-14 moderate; 15-21 severe): 0 Source: Developed by Drs. Cash Ahmadi, Katarina Deleon, Demetris Mario and colleagues, with an educational roslyn from [employer]. NEGRO-7 Assessment Billing NEGRO-7 Assessment Tool: NEGRO-7 Assessment 31305 Review of Systems Const Denies fatigue, Denies fever(s), Denies headache(s) and Denies weakness Eyes Denies change in vision ENT Denies dizziness, Denies headache(s) and Denies nasal congestion Card Denies chest pain, Denies lightheadedness, Denies palpitations and Denies dyspnea Resp Denies chest congestion, Denies cough and Denies dyspnea GI Denies abdominal pain, Denies change in bowel habits and Denies heartburn Musc Reports arthralgias and Reports stiffness Neuro Denies dizziness, Denies headache(s) and Denies weakness Psych Reports no additional complaints Endo Denies fatigue, Denies polydipsia, Denies polyuria and Denies palpitations David/Lymph Denies easy bruising Aller/Immun Denies seasonal rhinorrhea Physical exam (Primary Care) Vital Signs: Last Vital Signs Pulse 96 04/09/24 11:49 BP 102/80 04/09/24 11:49 Pulse Ox 96 04/09/24 11:49 Oxygen Delivery Method Room Air 04/09/24 11:49 BMI result Body Mass Index 33.0 Tobacco/Smoking Status: Tobacco use Status Tobacco use date assessed 04/09/24 04/09/24 11:54 Patient Tobacco Use Status Never used Tobacco 04/09/24 11:54 e-Cigarette/Vaping Use Never Used 04/09/24 11:54 PHQ-9: PHQ-9 Score PHQ-9: Total score 0 04/09/24 12:15 Depression Screening Interpretation: Negative Thrive Assessment: Date of Thrive Assessment Date Thrive assessed 04/09/24 04/09/24 11:54 Const Other: Alert oriented x3, no acute cardiorespiratory distress noted Orientation/consciousness: patient oriented x3 Neck Other: Supple, no lymphadenopathy palpated Resp Auscultation: clear to auscultation bilaterally Cardio Other: S1-S2 present regular rate and rhythm GI Palpation (GI): Soft to palpation, nontender, no guarding and no masses Auscultation: normal bowel sounds General: Yes no CVA tenderness Back/Spine/Pelvis Back: no CVA tenderness and No back tenderness Skin General skin exam: no rashes or lesions noted Neuro General: patient oriented x3, gait normal, tone normal, moves all extremities and no focal motor deficits Extrem General: Yes full ROM, Yes no joint enlargement, Yes no clubbing, cyanosis or edema, Yes no calf tenderness and Yes normal gait Assessment and Plan Assessment & Plan (1) Seronegative rheumatoid arthritis: Code(s): M06.00 - Rheumatoid arthritis without rheumatoid factor, unspecified site Plan: Previously seen by Dr. Trimble and was on prednisone and Enbrel, later switched to Humira due to insurance formulary. Will refer to rheumatology clinic in [place] for further evaluation manage Orders: Referrals Rheumatology Referral M06.00 - Rheumatoid arthritis without rheumatoid factor, unspecified site Coding Level of Care Code Est Pt Level 4 (75228) Diagnoses Seronegative rheumatoid arthritis M06.00 Additional Codes NEGRO-7 Assessment Billing - NEGRO-7 Assessment Tool: NEGRO-7 Assessment 28598 ([id number])
== END 2024-04-09 12:18 | disposition home or self-care (01) ==
PROVIDERS: PCP Internal Medicine; Visit Provider Internal Medicine
DX: M06.00 Rheumatoid arthritis without rheumatoid factor, unspecified site (principal)
CPT/HCPCS: 99214

== ENCOUNTER 2024-05-07 11:53 | Outpatient (AMB) | payer OTHER, SELFPAY ==
[2024-05-07 11:56] VITALS: BP 114/80; PULSE 90; O2SAT 98; BMI 33.4
--- NOTE | 2024-05-07 11:56 | A.OFFPC_ITS ---
Vital Signs 05/07/24 11:56 Height 5 ft 8 in Weight 220 lb BMI 33.4 BP 114/80 Blood Pressure Location Rt brachial Position Sitting Pulse 90 Pulse Source Pulse Oximeter Pulse Oximetry (%) 98 Oxygen Delivery Method Room Air Intake Visit Reasons: Annual PE Intake Note: Pt is here today for his PE Allergies nut - unspecified [NUT - UNSPECIFIED] Allergy (Unknown, Verified 05/12/24 03:09) ANAPHYLAXIS nuts Allergy (Unknown, Verified 05/12/24 03:09) hives/anaphylaxis, anaphylaxis Medication List - Last Reconciled 05/12/24 by Shwetha Carrero MD adalimumab (Humira Pen) inject one - 40 mg/0.8 mL pen every 2 weeks subcut terbinafine HCl 1% (Jock Itch (terbinafine)) 1 appl topical BID 10 days Tobacco use date assessed: 05/07/24 Dental Screening Dental Screen Date: 05/07/24 HPI Annual PE HPI Details 44-year-old male here today for physical exam. He has seronegative rheumatoid arthritis, has an appointment already scheduled with rheumatology clinic in a for next month. He is complaining of pruritic rash which initially started in his groin area now spread to his upper thighs. Complains of thick yellow toenails, has difficulty clipping them, and has noticed a beginning bunion deformity on left foot, which occasionally hurts. [facility] Medical History (Updated 05/07/24 @ 12:52 by Shwetha Carrero MD) Tinea cruris Hypertrophic toenail Hallux valgus (acquired), left foot Family history of colon cancer in mother Seronegative rheumatoid arthritis Surgical History (Updated 05/07/24 @ 12:36 by Shwetha Carrero MD) History of colonoscopy with polypectomy Hx of appendectomy Family History Father HTN (hypertension) Arthritis Social History Housing: House Alcohol intake: current Patient Tobacco Use Status: Never used Tobacco e-Cigarette/Vaping Use: Never Used service: No Current occupational status: employed Cognitive needs: No Hearing needs: No Vision needs: Yes Questionnaire PHQ-9 Over the last 2 weeks, how often have you been bothered by any of the following problems? Depression Screening Interpretation: Negative Depression Screening Done: Yes Source: Developed by Drs. Cash Ahmadi, Katarina Deleon, Demetris Mario and colleagues, with an educational roslyn from [employer]. Thrive Questionnaire Date Thrive assessed: 04/09/24 NEGRO-7 AMB Questionnaire NEGRO-7 Date NEGRO - 7 assessed: 04/09/24 Source: Developed by Drs. Cash Ahmadi, Katarina Deleon, Demetris Mario and colleagues, with an educational roslyn from [employer]. Review of Systems Const Denies fatigue, Denies fever(s), Denies headache(s) and Denies weakness Eyes Details: [facility] Denies change in vision ENT Denies dizziness, Denies headache(s) and Denies nasal congestion Card Denies chest pain, Denies lightheadedness, Denies palpitations and Denies dyspnea Resp Denies chest congestion, Denies cough and Denies dyspnea GI Denies abdominal pain, Denies change in bowel habits and Denies heartburn Reports no additional complaints Musc Reports arthralgias and Reports stiffness Skin/Breast Reports as per HPI Neuro Denies dizziness, Denies headache(s) and Denies weakness Psych Reports no additional complaints Endo Denies fatigue, Denies polydipsia, Denies polyuria and Denies palpitations David/Lymph Denies easy bruising Aller/Immun Denies seasonal rhinorrhea Physical exam (Primary Care) Vital Signs: Last Vital Signs Pulse 90 05/07/24 11:56 BP 114/80 05/07/24 11:56 Pulse Ox 98 05/07/24 11:56 Oxygen Delivery Method Room Air 05/07/24 11:56 BMI result Body Mass Index 33.4 Tobacco/Smoking Status: Tobacco use Status Tobacco use date assessed 05/07/24 05/07/24 11:58 Patient Tobacco Use Status Never used Tobacco 05/07/24 11:58 e-Cigarette/Vaping Use Never Used 05/07/24 11:58 Depression Screening Interpretation: Negative Thrive Assessment: Date of Thrive Assessment Date Thrive assessed 04/09/24 05/07/24 11:58 Const Other: Alert oriented x3, no acute cardiorespiratory distress noted Orientation/consciousness: patient oriented x3 HENMT Head: Yes normocephalic Ears: external ears normal, TM's normal bilaterally and EAC's normal General nose exam: Normal external nose present Face and sinus: Yes face symmetric Mouth: Normal oral and palatal mucosa present and moist mucous membranes Eyes General: appearance normal, both eyes and all related structures Neck Other: Supple, no lymphadenopathy palpated Resp Auscultation: clear to auscultation bilaterally Cardio Other: S1-S2 present regular rate and rhythm GI Palpation (GI): Soft to palpation, nontender, no guarding and no masses Auscultation: normal bowel sounds General: Yes no CVA tenderness Back/Spine/Pelvis Back: no CVA tenderness and No back tenderness Skin Other: Erythematous rash with see borders and central clearing noted on inguinal areas extending to upper part of thighs Nails: yellow and thickened (Toenails on both feet) Neuro General: patient oriented x3, gait normal, tone normal, moves all extremities and no focal motor deficits Extrem Other: Bony outgrowth noted on lateral aspect of left foot just below great toe, slightly tender to palpate General: Yes full ROM, Yes no clubbing, cyanosis or edema, Yes no calf tenderness and Yes normal gait Results Reviewed Results Reviewed: Name: Rony Dee Age/Sex: 43/M : 1980 Unit#: [id number] Attend Dr: Karrie Zamora MD Re04/02/24 Status: [facility]: SPEC : [id number] CRIS: 04/02/24 STATUS: COMP REQ : [id number] RECD: 04/02/[address]: Alpa Domínguez COMP: 04/02/24 ENTERED: 04/02/[address]: Shwetha Carrero MD ORDERED: CBC Auto Diff Test Result Flag Reference WBC 12.0 H 4.8-10.8 X10*3/uL RBC 4.59 L 4.60-5.80 X10*6/uL HGB 13.0 L 14.0-18.0 g/dl HCT 39.2 L 42.0-52.0 % MCV 85.4 80.0-98.0 fL MCH 28.3 27.0-33.0 pg MCHC 33.2 31.0-36.0 g/dl RDW 13.5 11.0-16.0 % PLT 370 160-400 X10*3/uL MPV 10.2 9.4-12.4 fL Neut Pct Auto 68.3 45-73 % ImGran Pct Auto 0.4 0.0-0.4 % Lymp Pct Auto 21.4 20-40 % [place] Pct Auto 7.8 2-11 % Eos Pct Auto 1.8 0-4 % Baso Pct Auto 0.3 0-2 % NRBC Pct Auto 0.0 0.0-0.2 /100WBC ANC Neut Abs # 8.2 2.0-8.3 x10*3/uL ImGran Abs Auto 0.05 H 0.00-0.03 X10*3/uL Lymph Abs Auto 2.6 1.2-4.9 X10*3/uL [place] Abs Auto 0.9 0.1-1.2 X10*3/uL Eos Abs Auto 0.2 0.0-0.4 X10*3/uL Baso Abs Auto 0.0 0.0-0.2 X10*3/uL NRBC Abs Auto 0.000 0.0-0.012 X10*3/uL Name: Rony Dee Age/Sex: 43/M : 1980 Unit#: [id number] Attend Dr: Karrie Zamora MD Re04/02/24 Status: DEP ER Location: [facility] Disch: SPEC : [id number] CRIS: 04/02/24 STATUS: COMP REQ : [id number] RECD: 04/02/[address]: Alpa Domínguez COMP: 04/02/24 ENTERED: 04/02/24-[address]: Shwetha Carrero MD ORDERED: CMP, MG, Lip Test Result Flag Reference Sodium 141 135-145 mmol/L Potassium 3.9 3.3-5.1 mmol/L CL 107 96-108 mmol/L CO2 23 22-29 mmol/L Gap 15 12-20 BUN 12 9-16 mg/dL Creat 0.78 0.5-1.4 mg/dL Estimated CrCl 126.2 eGFR (calculated from the MDRD study equation) and eCrCl (calculated from the Cockcroft-Gault equation) are based on different parameters and may not yield comparable results. If eCrCl result is absurd, please check patient's height/weight. EGFR > 60 NOTE: For -[place] individuals, multiply the result by 1.210. Chronic Kidney Disease: Estimated GFR < 60 mL/min/1.73m2 Severe Kidney Disease: Estimated GFR < 15 mL/min/1.73m2 Glucose, Random 107 60-115 mg/dL CA 9.6 8.4-10.2 mg/dL Magnesium 1.9 1.6-2.6 mg/dL Total Bili 0.2 0.0-1.0 mg/dL AST (GOT) 17 5-37 U/L ALT (GPT) 22 0-40 U/L Protein, Total 7.5 6.5-8.0 g/dL Alb 4.2 3.5-5.0 g/dL Alk Phos 52 39-117 U/L Lipase 25 8-78 U/L Assessment and Plan Assessment & Plan (1) Annual visit for general adult medical examination with abnormal findings: Code(s): Z00.01 - Encounter for general adult medical examination with abnormal findings Plan: Reviewed results of recent fasting labs with patient. Fasting lipid panel ordered Recommended dental visit every 6 months and regular eye exams, at least every 2 years. Take adequate calcium in diet and vitamin-D 3 at 2000 IU per cap once a day, in addition to weight-bearing exercises to help maintain good muscle tone and weight control. Instructed to do self testicular exam check for any mass. Referred to GI Clinic for initial screening colonoscopy. Has had initial COVID vaccinations but does not want to get the booster, reminded to get his yearly flu vaccine, up-to-date with his Tdap (2) Encounter for screening for malignant neoplasm of colon: Code(s): Z12.11 - Encounter for screening for malignant neoplasm of colon Plan: Referred to [facility] [place] GI clinic for his initial screening colonoscopy (3) Hallux valgus (acquired), left foot: Code(s): M20.12 - Hallux valgus (acquired), left foot Plan: Podiatry consult ordered (4) Hypertrophic toenail: Code(s): L60.2 - Onychogryphosis Plan: Podiatry consult ordered (5) Tinea cruris: Code(s): B35.6 - Tinea cruris Plan: Prescription sent for terbinafine HCL 1% cream to be applied to affected area in inguinal areas and upper thighs twice a day for next 10 days. Call if no improvement noted (6) Seronegative rheumatoid arthritis: Code(s): M06.00 - Rheumatoid arthritis without rheumatoid factor, unspecified site Plan: Has appointment with Dr. Hampton at rheumatology clinic on 06/25/2024 (7) Family history of colon cancer in mother: Code(s): Z80.0 - Family history of malignant neoplasm of digestive organs Plan: Referred for colon cancer screening to [facility] [place] GI clinic Orders: Orders Lipid Panel 05/07/24 Z00.01 - Encounter for general adult medical examination with abnormal findings Alanine Aminotransferase 05/07/24 Z00.01 - Encounter for general adult medical examination with abnormal findings Aspartate Amino Transferase 05/07/24 Z00.01 - Encounter for general adult medical examination with abnormal findings Basic Metabolic Panel Fasting 05/07/24 Z00.01 - Encounter for general adult medical examination with abnormal findings Vitamin D 25-OH Total 05/07/24 Z00.01 - Encounter for general adult medical examination with abnormal findings Referrals Podiatry Referral L60.2 - Onychogryphosis, M20.12 - Hallux valgus (acquired), left foot Gastroenterology Referral Z12.11 - Encounter for screening for malignant neoplasm of colon, Z80.0 - Family history of malignant neoplasm of digestive organs, Z86.010 - Personal history of colonic polyps, Z98.890 - Other specified postprocedural states Medications: New terbinafine HCl 1% (Jock Itch (terbinafine)) 1 appl topical BID 10 days 30 grams 0RF B35.6 - Tinea cruris Coding Level of Care Code Est Pt Prev Care 40-64y(00951) Diagnoses Annual visit for general adult medical examination with abnormal findings Z00.01 Encounter for screening for malignant neoplasm of colon Z12.11 Hallux valgus (acquired), left foot M20.12 Hypertrophic toenail L60.2 Tinea cruris B35.6 Seronegative rheumatoid arthritis M06.00 Family history of colon cancer in mother Z80.0
== END 2024-05-07 12:52 | disposition home or self-care (01) ==
PROVIDERS: PCP Internal Medicine; Visit Provider Internal Medicine
DX: Z00.01 Encounter for general adult medical examination with abnormal findings (principal); B35.6 Tinea cruris; M20.12 Hallux valgus (acquired), left foot; M06.00 Rheumatoid arthritis without rheumatoid factor, unspecified site; Z12.11 Encounter for screening for malignant neoplasm of colon; L60.2 Onychogryphosis; Z80.0 Family history of malignant neoplasm of digestive organs
CPT/HCPCS: 99213; 99396

== ENCOUNTER 2024-05-16 14:06 | Outpatient (AMB) | payer OTHER, SELFPAY ==
--- NOTE | 2024-05-16 14:31 | A.OFFVIS_ITS ---
Vital Signs 05/16/24 14:32 Height 5 ft 8 in Weight 215 lb 6.266 oz BMI 32.7 BP 108/70 Blood Pressure Location Rt brachial Position Sitting Pulse 94 Pulse Source Pulse Oximeter Pulse Oximetry (%) 96 Oxygen Delivery Method Room Air Intake Visit Reasons: RA/cm Intake Note: Last seen by Dr Trimble, presents today because he is out of medication. Last used Humira late February. He is experiencing an increased in joint pain Patent Agent Required: No Accompanied by: Self / Same As Patient Allergies nut - unspecified [NUT - UNSPECIFIED] Allergy (Unknown, Verified 05/16/24 14:40) ANAPHYLAXIS nuts Allergy (Unknown, Verified 05/16/24 14:40) hives/anaphylaxis, anaphylaxis methotrexate Adverse Reaction (Intermediate, Verified 05/16/24 15:15) Nausea and Vomiting Medication List - Last Reconciled 05/16/24 by Garfield Acevedo MD adalimumab (Humira Pen) inject one - 40 mg/0.8 mL pen every 2 weeks subcut terbinafine HCl 1% (Jock Itch (terbinafine)) 1 appl topical BID 10 days HPI Comments Details: 44-year-old male with sero negative erosive RA returns for follow-up. He was last seen by Dr. Trimble 10/2020. States that he ran out of his Humira back in 02/2024. Had enough Humira supply as he was spacing out his injections to every 3-4 weeks. Since then he has been having worsening joint pain and swelling especially his knees, his hands. Most recent history by Dr. Trimble 10/2020: 40yoM presents for follow-up on seronegative rheumatoid arthritis. Last seen in June 2020. Visit conducted via telemedicine. On Prednisone 5mg daily. Previously on Enbrel weekly but his insurance co- pay increased to $4000 and Pt was unable to afford the medication. Patient awaiting new insurance plan, states in the new year he should be able to get back on Enbrel. He feels okay in terms of joint pain and swelling while on prednisone. He states that he obviously felt much better while on Enbrel. [facility] Medical History Tinea cruris Hypertrophic toenail Hallux valgus (acquired), left foot Family history of colon cancer in mother Seronegative rheumatoid arthritis Surgical History History of colonoscopy with polypectomy Hx of appendectomy Family History Father HTN (hypertension) Arthritis Social History Housing: House Alcohol intake: current Patient Tobacco Use Status: Never used Tobacco e-Cigarette/Vaping Use: Never Used service: No Current occupational status: employed Cognitive needs: No Hearing needs: No Vision needs: Yes Review of Systems Musc Reports deformity, Reports arthralgias, Reports joint swelling, Reports limited range of motion and Reports stiffness Physical Exam Vital Signs: Last Vital Signs Pulse 94 05/16/24 14:32 BP 108/70 05/16/24 14:32 Pulse Ox 96 05/16/24 14:32 Oxygen Delivery Method Room Air 05/16/24 14:32 BMI result Body Mass Index 32.7 Const General: cooperative, healthy appearing and comfortable Nutritional Appearance: obese Orientation/consciousness: patient oriented x3 Limitations: no limitations HEENT Head: Yes normocephalic and Yes atraumatic Mouth: moist mucous membranes Resp Effort & Inspection: normal respiratory effort and able to speak in complete sentences Auscultation: clear to auscultation bilaterally Cardio Rate: regular rate Rhythm: regular rhythm Skin General skin exam: no rashes or lesions noted Neuro General: patient oriented x3 Extrem Other: Right wrist swelling, mild tenderness and pain with full extension, significantly limited right wrist flexion No swelling or tenderness MCPs and PIP is right hand 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 Right elbow pain with full extension Minimal left wrist swelling and tenderness Normal range of motion of left wrist 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 left hand 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 Normal range of motion of left elbow without pain Normal pain-free range of motion of both shoulders Bilateral knee swelling, more on the left Pain with range of motion Significant deformity of left foot with bunion, fibular deviation Assessment & Plan Assessment & Plan (1) Seronegative rheumatoid arthritis: Comment: -ve RF -ve CCP dx 2016 could tolerate MTX enbrel 2019 effective, but changed to Humira due to insurance change, also effective Intermittently on prednisone 5 mg daily Code(s): M06.00 - Rheumatoid arthritis without rheumatoid factor, unspecified site Category: Medical Plan: This is a 44-year-old male with seronegative deforming RA who presents for [facility] low-up. He was last seen by Dr. Trimble in 2019. He has been taking the Humira but was spacing out the injections every 3-4 weeks that is why it lasted him this long. He ran out February 2024. He has been having trouble flare-ups affecting his knees, wrists, hands. On exam he has multiple swollen and tender joints. Will need To restart Humira. I had a long conversation with patient today regarding rheumatoid arthritis and its possible complications such as deformities, tendon rupture, increased cardiovascular events and increase malignancy. Advised patient that he needs to his medications regularly and follow-up with Rheumatology regularly. In the past patient could not tolerate methotrexate due to GI side effects. He has done very well on Enbrel and Humira Check labs today. Will start prior authorization for Humira. Prednisone taper prescribed for relief Follow-up in 3 months Plan I spent 45 minutes reviewing patient's chart, evaluating patient, ordering diagnostic workup, counseling patient and documenting in the chart Orders: Orders Erythrocyte Sedimentation Rate Today M06.00 - Rheumatoid arthritis without rheumatoid factor, unspecified site Hepatitis A,B,C Profile Today Z11.59 - Encounter for screening for other viral diseases T Spot TB Today Z11.7 - Encounter for testing for latent tuberculosis infection Complete Blood Count Auto Diff Today M06.00 - Rheumatoid arthritis without rheumatoid factor, unspecified site Comprehensive Met. Panel Today M06.00 - Rheumatoid arthritis without rheumatoid factor, unspecified site C Reactive Protein Today M06.00 - Rheumatoid arthritis without rheumatoid factor, unspecified site Medications: New prednisone Take 4 tabs by mouth daily for 1 week, 3 tabs daily for 1 week, 2 tabs daily for 1 week, 1 tab daily for 1 week then stop 70 tabs 0RF Coding Level of Care Code New Pt Level 4 (53623) Diagnoses Seronegative rheumatoid arthritis M06.00
[2024-05-16 14:32] VITALS: BP 108/70; PULSE 94; O2SAT 96; BMI 32.7
== END 2024-05-16 14:59 | disposition home or self-care (01) ==
PROVIDERS: PCP Internal Medicine; Visit Provider Student in an Organized Health Care Education/Training Program
DX: M06.00 Rheumatoid arthritis without rheumatoid factor, unspecified site (principal)
CPT/HCPCS: 99204

== ENCOUNTER → 2024-05-16 14:06 | Outpatient (BNVA) | payer OTHER, SELFPAY | PROVIDERS: PCP Internal Medicine; Visit Provider Student in an Organized Health Care Education/Training Program ==

== ENCOUNTER 2024-05-31 06:49 | Outpatient (REF) | payer OTHER, SELFPAY ==
[2024-05-31 10:57] LABS: MANUAL DIFF FLAG NO
[2024-05-31 11:03] LABS: Basophils Absolute Auto 0.1 X10*3/uL (0.0-0.2); Basophils Percent Auto 0.6 % (0-2); Eosinophils Absolute Auto 0.1 X10*3/uL (0.0-0.4); Eosinophils Percent Auto 1.2 % (0-4); Hematocrit 41.9 % (42.0-52.0); Hemoglobin 13.7 g/dl (14.0-18.0); Imm Gran Abs Auto 0.02 X10*3/uL (0.00-0.03); Imm Gran Pct Auto 0.2 % (0.0-0.4); Lymphocytes Absolute Auto 3.3 X10*3/uL (1.2-4.9); Lymphocytes Percent Auto 33.4 % (20-40); Mean Corpuscular HGB Conc 32.7 g/dl (31.0-36.0); Mean Corpuscular Hemoglobin 28.5 pg (27.0-33.0); Mean Corpuscular Volume 87.1 fL (80.0-98.0); Mean Platelet Volume 10.8 fL (9.4-12.4); Monocytes Absolute Auto 0.7 X10*3/uL (0.1-1.2); Monocytes Percent Auto 6.8 % (2-11); Neutrophils Absolute Auto 5.7 x10*3/uL (2.0-8.3); Neutrophils Percent Auto 57.8 % (45-73); Platelet Count 404 X10*3/uL (160-400); Red Blood Count 4.81 X10*6/uL (4.60-5.80); White Blood Count 9.9 X10*3/uL (4.8-10.8)
[2024-05-31 11:21] LABS: Alanine Aminotransferase 19 U/L (0-40); Alanine Aminotransferase 21 U/L (0-40); Albumin Level 4.6 g/dL (3.5-5.0); Alkaline Phosphatase 44 U/L (39-117); Anion Gap 11 (12-20); Aspartate Amino Transferase 14 U/L (5-37); Aspartate Amino Transferase 15 U/L (5-37); Bilirubin Total 0.5 mg/dL (0.0-1.0); Blood Urea Nitrogen 14 mg/dL (9-16); C Reactive Protein 1.19 mg/dL (< or = 0.50); Calcium 9.3 mg/dL (8.4-10.2); Carbon Dioxide 29 mmol/L (22-29); Chloride 108 mmol/L (96-108); Cholesterol 176 mg/dL (<200); Estimated Glomerular Filt Rate > 60; Glucose Fasting 94 mg/dL (60-99); Glucose Random 95 mg/dL (60-115); HDL Cholesterol 42 mg/dL (>40); LDL Cholesterol Calculated 104 mg/dL (<100); Sodium 144 mmol/L (135-145); Total Protein 7.4 g/dL (6.5-8.0); Triglycerides 153 mg/dL (<150)
[2024-05-31 11:38] LABS: Vitamin D 25-OH Total 38.9 ng/mL (>30)
[2024-05-31 11:40] LABS: Erythrocyte Sedimentation Rate 6 MM/HR (0-15)
[2024-06-02 08:04] LABS: HBS Num1 87.31 mIU/mL (0-7.99); HBc Num1 0.35 S/CO (0.00-0.79); HBsAGNum1 0.32 S/CO (0.00-0.99); Hepatitis A Antibody IgM 0.17 Index (0-0.79); Hepatitis B Core Antibody Nonreactive (Nonreactive); Hepatitis B Surface Antigen Negative (Negative); ~HepC Num1 0.11 S/CO (0.00-0.79); ~Hepatitis A Antibody IgM Nonreactive (Nonreactive); ~Hepatitis B Surface Antibody REACTIVE (Nonreactive); ~Hepatitis C Antibody Nonreactive (Nonreactive)
== END 2024-05-31 06:50 | disposition home or self-care (01) ==
LOC: HO.HMGCLDS 06:49
PROVIDERS: PCP Internal Medicine; Visit Provider Student in an Organized Health Care Education/Training Program
DX: Z00.01 Encounter for general adult medical examination with abnormal findings (principal); Z11.59 Encounter for screening for other viral diseases; M06.00 Rheumatoid arthritis without rheumatoid factor, unspecified site
CPT/HCPCS: 36415; 80048; 80053; 80061; 82306; 84450; 84460; 85025; 85652; 86140; 86704; 86706; 86709; 86803; 87340

== ENCOUNTER 2024-08-07 15:26 | Outpatient (AMB) | payer OTHER, SELFPAY ==
--- NOTE | 2024-08-07 15:49 | MHC.OFFVIS ---
Vital Signs 08/07/24 15:51 Height 5 ft 8 in Weight 213 lb 10.047 oz BMI 32.5 BP 122/80 Blood Pressure Location Rt brachial Position Sitting Pulse 75 Pulse Source Pulse Oximeter Pulse Oximetry (%) 92 Oxygen Delivery Method Room Air Intake Visit Reasons: RA Intake Note: Patient presents for RA. Allergies nut - unspecified [NUT - UNSPECIFIED] Allergy (Unknown, Verified 08/07/24 15:51) ANAPHYLAXIS nuts Allergy (Unknown, Verified 08/07/24 15:51) hives/anaphylaxis, anaphylaxis methotrexate Adverse Reaction (Intermediate, Verified 08/07/24 15:51) Nausea and Vomiting Medication List - Last Reconciled 08/07/24 by Garfield Acevedo MD prednisone 5 - 10 mg (1 - 2 x 5 mg) PO DAILY PRN terbinafine HCl 1% (Jock Itch (terbinafine)) 1 appl topical BID 10 days HPI Comments Details: 44-year-old male with sero negative erosive RA returns for follow-up. After last visit, Humira was pursued but it was denied by insurance. He was also denied the patient assistance program. Patient states that he will get in early August and believes that he will be on his 's insurance in just a few days and he believes her [employer] insurance is better and should cover Humira. He states that he continues to have different joint pains but the majority of his complaints are his right wrist. Most recent history by Dr. Trimble 10/2020: 40yoM presents for follow-up on seronegative rheumatoid arthritis. Last seen in June 2020. Visit conducted via telemedicine. On Prednisone 5mg daily. Previously on Enbrel weekly but his insurance co-pay increased to $4000 and Pt was unable to afford the medication. Patient awaiting new insurance plan, states in the new year he should be able to get back on Enbrel. He feels okay in terms of joint pain and swelling while on prednisone. He states that he obviously felt much better while on Enbrel. [facility] Medical History Tinea cruris Hypertrophic toenail Hallux valgus (acquired), left foot Family history of colon cancer in mother Seronegative rheumatoid arthritis Surgical History History of colonoscopy with polypectomy Hx of appendectomy Family History Father HTN (hypertension) Arthritis Social History Housing: House Alcohol intake: current Patient Tobacco Use Status: Never used Tobacco e-Cigarette/Vaping Use: Never Used service: No Current occupational status: employed Cognitive needs: No Hearing needs: No Vision needs: Yes Review of Systems Musc Reports deformity, Reports arthralgias, Reports joint swelling, Reports limited range of motion and Reports stiffness Physical Exam Vital Signs: Last Vital Signs Pulse 75 08/07/24 15:51 BP 122/80 08/07/24 15:51 Pulse Ox 92 08/07/24 15:51 Oxygen Delivery Method Room Air 08/07/24 15:51 BMI result Body Mass Index 32.5 Const General: cooperative, healthy appearing and comfortable Nutritional Appearance: obese Orientation/consciousness: patient oriented x3 Limitations: no limitations HEENT Head: Yes normocephalic and Yes atraumatic Resp Effort & Inspection: normal respiratory effort and able to speak in complete sentences Neuro General: patient oriented x3 Extrem Other: Right wrist swelling, mild tenderness and pain with full extension, significantly limited right wrist flexion No swelling or tenderness MCPs and PIP is right hand 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 Normal range of motion of left wrist 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 left hand 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 Normal range of motion of left elbow without pain Normal pain-free range of motion of both shoulders Significant deformity of left foot with bunion, fibular deviation Office Procedures Joint Injection/Aspiration Joint Injection/Aspiration Details: Right wrist Prep: site was prepped using sterile technique Injected: 20 mg of, Kenalog, in the joint and other (0.1 mL of 1% lidocaine) Procedure: The patient tolerated the procedure well Coding Details: With patient's consent, The area over the dorsum of the right wrist was prepped with ChloraPrep then using a 25 gauge needle 20 mg of Kenalog mixed with 0.1 cc of 1% lidocaine was injected into the wrist joint space. The patient tolerated the procedure well with no immediate adverse events 70139 - Medium joint Procedure code (CPT) selection complete Assessment & Plan Assessment & Plan (1) Seronegative rheumatoid arthritis: Comment: -ve RF -ve CCP dx 2016 could tolerate MTX enbrel 2020 effective, but changed to Humira due to insurance change, also effective Intermittently on prednisone 5 mg daily Code(s): M06.00 - Rheumatoid arthritis without rheumatoid factor, unspecified site Category: Medical Plan: This is a 44-year-old male with seronegative deforming RA who presents for follow-up. Humira and bio similars were denied by his insurance, his insurance plan apparently does not cover specialty meds. He was also denied the patient assistance program. Patient states that he will be beginning of next month and will be on his 's insurance and believes his 's insurance should cover biologics. He continues to have active synovitis. Advised patient to let us know as soon as he has a new insurance and we will restart his authorization for Humira or it is bio similars His right wrist seems to be the most troublesome joint. With patient's consent, right wrist was injected with Kenalog today. Advised patient to monitor his symptoms and can take prednisone 5-10 mg once daily as needed flare-ups Labs before next visit in 4 months Plan I spent 15 minutes reviewing patient's chart, evaluating patient, ordering diagnostic workup, counseling patient and documenting in the chart Orders: Orders Complete Blood Count Auto Diff 4 Months M06.00 - Rheumatoid arthritis without rheumatoid factor, unspecified site AMB Joint Injection/Aspiration Today M06.00 - Rheumatoid arthritis without rheumatoid factor, unspecified site Comprehensive Met. Panel 4 Months M06.00 - Rheumatoid arthritis without rheumatoid factor, unspecified site C Reactive Protein 4 Months M06.00 - Rheumatoid arthritis without rheumatoid factor, unspecified site Erythrocyte Sedimentation Rate 4 Months M06.00 - Rheumatoid arthritis without rheumatoid factor, unspecified site Medications: Changed From prednisone Take 4 tabs by mouth daily for 1 week, 3 tabs daily for 1 week, 2 tabs daily for 1 week, 1 tab daily for 1 week then stop 70 tabs 0RF To prednisone 5 - 10 mg (1 - 2 x 5 mg) PO DAILY PRN 60 tabs 1RF pain Coding Level of Care Code Est Pt Level 4 (03783) Diagnoses Seronegative rheumatoid arthritis M06.00 CPT Codes Coding - 88422 Medium joint: 63752 - Medium joint ([id number])
[2024-08-07 15:51] VITALS: BP 122/80; PULSE 75; O2SAT 92; BMI 32.5
== END 2024-08-07 16:19 | disposition home or self-care (01) ==
PROVIDERS: PCP Internal Medicine; Visit Provider Student in an Organized Health Care Education/Training Program
DX: M06.09 Rheumatoid arthritis without rheumatoid factor, multiple sites (principal); M25.531 Pain in right wrist
CPT/HCPCS: 20605; 99214

== ENCOUNTER → 2024-08-07 15:26 | Outpatient (BNVA) | payer OTHER, SELFPAY | PROVIDERS: PCP Internal Medicine; Visit Provider Student in an Organized Health Care Education/Training Program | DX: M06.00 Rheumatoid arthritis without rheumatoid factor, unspecified site (principal) | CPT/HCPCS: 20605; J2003; J3301 ==

== ENCOUNTER 2024-12-01 14:21 | Outpatient (AMB) | payer OTHER, SELFPAY ==
--- NOTE | 2024-12-01 14:35 | MHC.OFFVIS ---
Vital Signs 12/01/24 14:39 Height 5 ft 11 in Weight 214 lb 4.629 oz BMI 29.9 BP 140/80 H Blood Pressure Location Lt brachial Position Sitting Pulse 94 Pulse Source Pulse Oximeter Pulse Oximetry (%) 98 Oxygen Delivery Method Room Air Intake Visit Reasons: RA Intake Note: Patient presents for RA. 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 After last visit patient stated that he was going to be on his 's insurance and he would be able to have specialty meds authorize. This did not work out. He has been unable to go on his 's insurance. He states that he is planning to get health insurance through [facility]. He states that his RA has not been doing well. He continues to have pain and stiffness in his knees, intermittent pain and swelling in his fingers. His right wrist has been much better since the steroid injection done last visit. He has been taking prednisone 5 mg Twice daily [facility] Medical History Tinea cruris Hypertrophic toenail Hallux valgus (acquired), left foot Family history of colon cancer in mother Seronegative rheumatoid arthritis Surgical History History of colonoscopy with polypectomy Hx of appendectomy Family History Father HTN (hypertension) Arthritis Social History Housing: House Alcohol intake: current Patient Tobacco Use Status: Never used Tobacco e-Cigarette/Vaping Use: Never Used service: No Current occupational status: employed Cognitive needs: No Hearing needs: No Vision needs: Yes Review of Systems [facility] Reports arthralgias, Reports joint swelling, Reports limited range of motion and Reports stiffness Physical Exam Vital Signs: Last Vital Signs Pulse 94 12/01/24 14:39 BP 140/80 H 12/01/24 14:39 Pulse Ox 98 12/01/24 14:39 Oxygen Delivery Method Room Air 12/01/24 14:39 BMI result Body Mass Index 29.9 Const General: cooperative, healthy appearing and comfortable Nutritional Appearance: obese Orientation/consciousness: patient oriented x3 Limitations: no limitations HEENT Head: Yes normocephalic and Yes atraumatic Resp Effort & Inspection: normal respiratory effort and able to speak in complete sentences Neuro General: patient oriented x3 Extrem Other: Right wrist swelling and tenderness resolved, significantly limited right wrist flexion (chronic) Mild swelling of right hand fingers, not tender to palpation today Bilateral elbow pain with full extension Bilateral knee warmth and pain with full flexion and extension Significant deformity of left foot with bunion, fibular deviation Assessment & Plan Assessment & Plan (1) Seronegative rheumatoid arthritis: Comment: -ve RF -ve CCP dx 2016 could tolerate MTX enbrel 2020 effective, but changed to Humira due to insurance change, also effective, [place] d.t, insurance issues Intermittently on prednisone 5 mg daily Code(s): M06.00 - Rheumatoid arthritis without rheumatoid factor, unspecified site Category: Medical Plan: This is a 44-year-old male with seronegative deforming RA who presents for follow-up. After last visit patient stated that he will be on his 's insurance and he should be able to have specialty meds authorized. This did not work out and he has been unable to get on his 's insurance. He states that he is planning to purchase insurance through [facility]. He continues to have active synovitis. Continues to require prednisone 5 mg Twice daily Discussed with patient that we need to start him on a DMARD at this time to control his RA. Discussed risks and benefits of leflunomide. Patient agreed to proceed. Start leflunomide 10 mg daily for one-month and repeat blood work, if safety labs are normal, plan to increase to 20 mg daily Labs today, in one-month and in 2 months before next visit (2) High risk medication use: Code(s): Z79.899 - Other senior living (current) drug therapy Category: Medical Plan: Monitor safety labs for leflunomide. Patient and his have 2 children together. Discussed possible teratogenic effects of leflunomide. His uses control regularly Plan I spent 25 minutes reviewing patient's chart, evaluating patient, ordering diagnostic workup, counseling patient and documenting in the chart Orders: Orders Comprehensive Met. Panel 2 Months M06.00 - Rheumatoid arthritis without rheumatoid factor, unspecified site, Z79.899 - Other rodent exterminator (current) drug therapy C Reactive Protein 2 Months M06.00 - Rheumatoid arthritis without rheumatoid factor, unspecified site, Z79.899 - Other rodent exterminator (current) drug therapy Complete Blood Count Auto Diff 1 Month Z79.899 - Other senior living (current) drug therapy Erythrocyte Sedimentation Rate 1 Month Z79.899 - Other senior living (current) drug therapy Complete Blood Count Auto Diff Today M06.00 - Rheumatoid arthritis without rheumatoid factor, unspecified site, Z79.899 - Other rodent exterminator (current) drug therapy Complete Blood Count Auto Diff 2 Months M06.00 - Rheumatoid arthritis without rheumatoid factor, unspecified site, Z79.899 - Other senior living (current) drug therapy Erythrocyte Sedimentation Rate 2 Months M06.00 - Rheumatoid arthritis without rheumatoid factor, unspecified site, Z79.899 - Other senior living (current) drug therapy Comprehensive Met. Panel 1 Month Z79.899 - Other rodent exterminator (current) drug therapy C Reactive Protein 1 Month Z79.899 - Other senior living (current) drug therapy Comprehensive Met. Panel Today M06.00 - Rheumatoid arthritis without rheumatoid factor, unspecified site, Z79.899 - Other senior living (current) drug therapy C Reactive Protein Today M06.00 - Rheumatoid arthritis without rheumatoid factor, unspecified site, Z79.899 - Other senior living (current) drug therapy Erythrocyte Sedimentation Rate Today M06.00 - Rheumatoid arthritis without rheumatoid factor, unspecified site, Z79.899 - Other senior living (current) drug therapy Medications: New leflunomide 10 mg PO DAILY 30 tabs 0RF Coding Level of Care Code Est Pt Level 4 (69224) Complex EM visit Add On G2211 Diagnoses Seronegative rheumatoid arthritis M06.00 High risk medication use Z79.899
[2024-12-01 14:39] VITALS: BP 140/80; PULSE 94; O2SAT 98; BMI 29.9
== END 2024-12-01 15:06 | disposition home or self-care (01) ==
PROVIDERS: PCP Internal Medicine; Visit Provider Student in an Organized Health Care Education/Training Program
DX: M06.00 Rheumatoid arthritis without rheumatoid factor, unspecified site (principal); Z79.899 Other long term (current) drug therapy
CPT/HCPCS: 99214; G2211

== ENCOUNTER 2025-02-17 14:23 | Outpatient (AMB) | payer OTHER, SELFPAY ==
[2025-02-17 14:23] VITALS: BP 128/76; PULSE 105; O2SAT 98; BMI 30.3
--- NOTE | 2025-02-17 14:23 | A.OFFVIS_ITS ---
Vital Signs 02/17/25 14:23 Height 5 ft 11 in Weight 217 lb 2.485 oz BMI 30.3 BP 128/76 Blood Pressure Location Lt brachial Position Sitting Pulse 105 H Pulse Source Pulse Oximeter Pulse Oximetry (%) 98 Oxygen Delivery Method Room Air Intake Visit Reasons: RA Intake Note: Patient last seen by Doctor Garfield Acevedo on 12/01/24. Presents today for RA follow up and test results. Patient states he was not able to get labs done. Allergies nut - unspecified [NUT - UNSPECIFIED] Allergy (Unknown, Verified 02/17/25 14:28) ANAPHYLAXIS nuts Allergy (Unknown, Verified 02/17/25 14:28) hives/anaphylaxis, anaphylaxis methotrexate Adverse Reaction (Intermediate, Verified 02/17/25 14:28) Nausea and Vomiting Medication List - Last Reconciled 02/17/25 by Kaylee Govea MD leflunomide 10 mg PO DAILY prednisone 5 - 10 mg (1 - 2 x 5 mg) PO DAILY PRN terbinafine HCl 1% (Jock Itch (terbinafine)) 1 appl topical BID 10 days HPI Comments Details: Patient is a 44-year-old male with seronegative erosive rheumatoid arthritis here today for follow up Interval History: Patient last seen 12/01/[address] Acevedo. At that time he was on 5 mg of prednisone twice a day. Has been unable to get specialty medications due to insurance issues. Currently on leflunomide 10mg and prednisone 10-15mg daily. States that the 10mg sometimes isn't enough and he would need 15mg Planning to move to [place] next month Rheumatologic History: -ve RF -ve CCP dx 2016 could tolerate MTX enbrel 2019 effective, but changed to Humira due to insurance change, also effective, [place] d.t, insurance issues Intermittently on prednisone 5 mg daily Current Rheumatology Medication(s): Leflunomide 10mg daily Prednisone 10mg daily (sometimes takes 15mg) [facility] Medical History Tinea cruris Hypertrophic toenail Hallux valgus (acquired), left foot Family history of colon cancer in mother Seronegative rheumatoid arthritis Surgical History History of colonoscopy with polypectomy Hx of appendectomy Family History Father HTN (hypertension) Arthritis Social History Housing: House Alcohol intake: current Patient Tobacco Use Status: Never used Tobacco e-Cigarette/Vaping Use: Never Used service: No Current occupational status: employed Cognitive needs: No Hearing needs: No Vision needs: Yes Review of Systems Const Details: Review of Systems Constitutional: Denies fever, chills, weight loss ENT: Denies vision changes, eye pain or eye redness, dental caries, dry mouth GI: Denies nausea, vomiting, diarrhea, abdominal pain, change in BM Pulm: Denies SOB, MAYER, hemoptysis, wheezing Cards: Denies chest pain, palpitations Skin: Denies Raynaud's, rash, nail changes, photosensitivity, IN FL[employer] 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 Well appearing and in no apparent painful distress HEENT Conjunctiva and sclera clear. ?Pupils equal round and reactive to light. ?No lymphadenopathy. ? CHEST/RESPIRATORY SYSTEM Normal respiratory effort and able to speak in complete sentences. ?Clear to auscultation bilaterally. ?No crackles, rales, rhonchi, wheezes heard. CARDIAC SYSTEM Regular rate and rhythm. ?S1 and S2 heard no murmurs. ?Radial pulses intact bilaterally MSK Hands: ?Good manager financial services strength bilaterally. No deformities noted. ?No synovitis note d to the MCPs, PIPs or DIPs. ?No tenderness to palpation of these joints. Wrists: ?Tenderness to palpation of the right wrists with reduced range of motion to flexion and extension about 15-20 degrees. Elbows: Full range of motion without pain. No tenderness, weakness, swelling, increased warmth or erythema. Shoulders: Full range of motion without pain. No tenderness, weakness, swelling, increased warmth or erythema. Knees: ?Full range of motion. ?No tenderness, swelling, increased warmth or erythema.?No effusion or crepitations Ankles: Full range of motion. ?No tenderness, swelling, increased warmth or erythema.? Feet: Positive squeeze test bilaterally with tenderness to palpation of scattered MTPs. Tender points:?No tenderness to palpation of the bilateral trapezius, supra spinatus, greater trochanters, anterior costochondral junctions, bilateral gluteal areas, bilateral suboccipital muscle insertions SKIN Skin intact without rashes. Results Reviewed Results Reviewed: Patient has not done blood work Assessment & Plan Assessment & Plan (1) Seronegative rheumatoid arthritis: Comment: -ve RF -ve CCP dx 2017 could tolerate MTX enbrel 2020 effective, but changed to Humira due to insurance change, also effective, [place], insurance issues Intermittently on prednisone 5 mg daily Code(s): M06.00 - Rheumatoid arthritis without rheumatoid factor, unspecified site Category: Medical Plan: #Seronegative erosive RA Patient is a 44-year-old male with seronegative erosive rheumatoid arthritis. Currently not controlled with respect to his arthritis. Still having insurance issues and is currently awaiting marriage to his fiancee so that he can get on her insurance. In the meantime I discussed triple therapy with the patient stating that it has been show to be as effective as Enbrel (1) in early studies Since we do not want to delay therapy while he awaits insurance we will proceed with triple therapy. Plan - Plaquenil 200mg bid - Sulfasalazine 500mg bid - Leflunomide 20mg daily - Prednisone 5mg bid - Labs today: CBC, CMP, ESR, CRP, hepatitis panel, T spot - Patient moving to [place] in February, encouraged to find precision mechanical instrument maker to follow up with Andrew LW, Caro JR, Wesley HE, Lai JR, Winston JM, [place] EW, Francy COLMENARES Jr, Austin J, Florencio T, Alan G, van satinder Hekristin D, Ángel SS; TEAR Investigators. A randomized comparative effectiveness study of oral triple therapy versus etanercept plus methotrexate in early aggressive rheumatoid arthritis: the treatment of Early Aggressive Rheumatoid Arthritis Trial. Arthritis Rheum. 2012 Jul;64(9):2824-35. doi: 10.1002/art.69832. PMID: 78761417; PMCID: [id number]. (2) Encounter for monitoring leflunomide therapy: Code(s): Z51.81 - Encounter for therapeutic drug level monitoring; Z79.69 - FPC (current) use of other immunomodulators and immunosuppressants Plan: #Long-term leflunomide Discussed with patient the benefits and risks of leflunomide for managing the rheumatic condition Benefits include: - Reduced pain, maintenance of remission and reduction of flares Risks include: - GI upset especially diarrhea, skin rash, cytopenias, hepatotoxicity, weight loss, neuropathy Leflunomide is highly teratogenic. ?Has a very long half-life. ?Needs cholestyramine washout if there is desire for Initiation: ?CBC, BMP, LFTs, hepatitis-B and C serologies every 2-4 weeks for 3 months Monitoring: ?CBC, BMP, LFTs, hepatitis B and C serologies (3) Encounter for monitoring sulfasalazine therapy: Code(s): Z51.81 - Encounter for therapeutic drug level monitoring; Z79.899 - Other long-term (current) drug therapy Plan: #Long-term Use of Sulphasalazine Discussed with patient the risks and benefits of sulfasalazine in the management of the rheumatic condition Benefits include: - Reduced pain, reduce mortality, maintenance of remission then reduction of flares Risks include: - GI upset, hemolysis (especially if G6PD deficiency), eosinophilia, headache, dizziness, rash, elevated LFTs (4) Encounter for monitoring of hydroxychloroquine therapy: Code(s): Z51.81 - Encounter for therapeutic drug level monitoring; Z79.899 - Other long-term (current) drug therapy Plan: #Long-term Use of Hydroxychloroquine Discussed with patient the risks and benefits of hydroxychloroquine in managing the rheumatic condition Benefits include: - Reduced pain, reduce mortality, maintenance of remission and reduction of flares Risks include: - GI upset, skin hyperpigmentation, retinal toxicity (especially after more than 5 years of use), myopathy Advised yearly ophthalmology visits Plan I spent 36 minutes reviewing the record and labs, taking a history, examining the patient, discussing the treatment plan, ordering diagnostic work up and documenting in the medical record Orders: Orders Hepatitis A,B,C Profile Today M06.00 - Rheumatoid arthritis without rheumatoid factor, unspecified site T Spot TB Today M06.00 - Rheumatoid arthritis without rheumatoid factor, unspecified site Complete Blood Count Auto Diff Today M06.00 - Rheumatoid arthritis without rheumatoid factor, unspecified site Comprehensive Met. Panel Today M06.00 - Rheumatoid arthritis without rheumatoid factor, unspecified site C Reactive Protein Today M06.00 - Rheumatoid arthritis without rheumatoid factor, unspecified site Erythrocyte Sedimentation Rate Today M06.00 - Rheumatoid arthritis without rheumatoid factor, unspecified site Medications: New hydroxychloroquine 200 mg PO BID 180 tabs 1RF M06.00 - Rheumatoid arthritis without rheumatoid factor, unspecified site sulfasalazine give with food (meal/snack) 0.5 grams PO BID 180 tabs 1RF M06.00 - Rheumatoid arthritis without rheumatoid factor, unspecified site Changed From leflunomide 10 mg PO DAILY 30 tabs 0RF M06.00 - Rheumatoid arthritis without rheumatoid factor, unspecified site To leflunomide 20 mg PO DAILY 90 tabs 1RF M06.00 - Rheumatoid arthritis without rheumatoid factor, unspecified site From prednisone 5 - 10 mg (1 - 2 x 5 mg) PO DAILY PRN 60 tabs 1RF for pain M06.00 - Rheumatoid arthritis without rheumatoid factor, unspecified site To prednisone 5mg AM and 5mg PM 10 mg (2 x 5 mg) PO DAILY 90 days 180 tabs 1RF M06.00 - Rheumatoid arthritis without rheumatoid factor, unspecified site Coding Level of Care Code Est Pt Level 4 (54554) Complex EM visit Add On G2211 Diagnoses Seronegative rheumatoid arthritis M06.00 Encounter for monitoring leflunomide therapy Z51.81; Z79.69 Encounter for monitoring sulfasalazine therapy Z51.81; Z79.899 Encounter for monitoring of hydroxychloroquine therapy Z51.81; Z79.899
== END 2025-02-17 14:55 | disposition home or self-care (01) ==
LOC: HO.RHE 14:24
PROVIDERS: PCP Internal Medicine; Visit Provider Student in an Organized Health Care Education/Training Program
DX: M06.00 Rheumatoid arthritis without rheumatoid factor, unspecified site (principal); Z51.81 Encounter for therapeutic drug level monitoring; Z79.69 Long term (current) use of other immunomodulators and immunosuppressants; Z79.899 Other long term (current) drug therapy
CPT/HCPCS: 99214; G2211

== ENCOUNTER 2025-02-17 14:23 | Outpatient (REF) | payer OTHER, SELFPAY ==
[2025-02-17 15:13] LABS: MANUAL DIFF FLAG NO
[2025-02-17 15:23] LABS: Basophils Percent Auto 0.3 % (0-2); Eosinophils Percent Auto 0.1 % (0-4); Hematocrit 42.7 % (42.0-52.0); Hemoglobin 14.7 g/dl (14.0-18.0); Imm Gran Abs Auto 0.03 X10*3/uL (0.00-0.03); Imm Gran Pct Auto 0.3 % (0.0-0.4); Lymphocytes Absolute Auto 1.4 X10*3/uL (1.2-4.9); Lymphocytes Percent Auto 12.7 % (20-40); Mean Corpuscular HGB Conc 34.4 g/dl (31.0-36.0); Mean Corpuscular Hemoglobin 29.2 pg (27.0-33.0); Mean Corpuscular Volume 84.9 fL (80.0-98.0); Mean Platelet Volume 10.6 fL (9.4-12.4); Monocytes Absolute Auto 0.5 X10*3/uL (0.1-1.2); Monocytes Percent Auto 4.2 % (2-11); Neutrophils Absolute Auto 9.2 x10*3/uL (2.0-8.3); Neutrophils Percent Auto 82.4 % (45-73); Platelet Count 393 X10*3/uL (160-400); Red Blood Count 5.03 X10*6/uL (4.60-5.80); Red Cell Distribution Width 14.1 % (11.0-16.0); White Blood Count 11.1 X10*3/uL (4.8-10.8)
[2025-02-17 16:34] LABS: Erythrocyte Sedimentation Rate 7 MM/HR (0-15)
[2025-02-17 16:49] LABS: Alanine Aminotransferase 83 U/L (0-40); Albumin Level 4.5 g/dL (3.5-5.0); Alkaline Phosphatase 51 U/L (39-117); Anion Gap 11 (12-20); Aspartate Amino Transferase 40 U/L (5-37); Bilirubin Total 0.4 mg/dL (0.0-1.0); Blood Urea Nitrogen 17 mg/dL (9-16); C Reactive Protein 0.22 mg/dL (< or = 0.50); Calcium 9.1 mg/dL (8.4-10.2); Carbon Dioxide 24 mmol/L (22-29); Chloride 109 mmol/L (96-108); Estimated Glomerular Filt Rate > 60; Glucose Random 138 mg/dL (60-115); Sodium 140 mmol/L (135-145); Total Protein 7.4 g/dL (6.5-8.0)
[2025-02-18 04:15] LABS: HBS Num1 44.12 mIU/mL (0-7.99); HBsAGNum1 0.34 S/CO (0.00-0.99); Hepatitis B Core Antibody Nonreactive (Nonreactive); Hepatitis B Surface Antigen Negative (Negative); ~HepC Num1 0.13 S/CO (0.00-0.79); ~Hepatitis A Antibody IgM Nonreactive (Nonreactive); ~Hepatitis B Surface Antibody REACTIVE (Nonreactive); ~Hepatitis C Antibody Nonreactive (Nonreactive)
[2025-02-19 22:18] LABS: TS Negative Control Passed; TS Panel A 0; TS Panel B 0; TS Positive Control Passed; TSpotTB Negative (Negative)
== END 2025-02-17 14:24 | disposition home or self-care (01) ==
LOC: HO.LAB 14:23
PROVIDERS: PCP Internal Medicine; Visit Provider Student in an Organized Health Care Education/Training Program
DX: M06.00 Rheumatoid arthritis without rheumatoid factor, unspecified site (principal); Z79.69 Long term (current) use of other immunomodulators and immunosuppressants; Z79.899 Other long term (current) drug therapy
CPT/HCPCS: 36415; 80053; 85025; 85652; 86140; 86481; 86704; 86706; 86709; 86803; 87340